=== PATIENT | female | born 1950 | race Caucasian/White ===

== ENCOUNTER 2023-05-30 07:04 | Day surgery (SDC) | payer OTHER ==
[2023-05-23 16:35] LABS: BASOPHILS # (AUTO) 0.1 K/uL (0.0-0.2); EOSINOPHILS # (AUTO) 0.2 K/uL (0.0-0.4); EOSINOPHILS % (AUTO) 3.5 % (0.0-4.0); HEMATOCRIT 36.6 % (36-48); HEMOGLOBIN 12.5 g/dL (12.0-16.0); LYMPHOCYTES # (AUTO) 1.9 K/uL (1.0-5.5); LYMPHOCYTES % (AUTO) 30.7 % (20.5-51.5); MEAN CORPUSCULAR HEMOGLOBIN 32 pg (27-31); MEAN CORPUSCULAR HGB CONC 34 % (32-36); MEAN CORPUSCULAR VOLUME 94 fL (79.0-98.0); MONOCYTES # (AUTO) 0.5 K/uL (0.0-1.0); MONOCYTES % (AUTO) 8.6 % (1.7-9.3); NEUTROPHILS # (AUTO) 3.5 K/uL (1.8-7.7); NEUTROPHILS % (AUTO) 56.2 % (40.0-70.0); PLATELET COUNT (AUTO) 243 K/uL (130-430); RED BLOOD CELL COUNT(AUTO) 3.91 MIL/uL (4.2-6.2); RED CELL DISTRIBUTION WIDTH 12.5 % (9.0-15.0); WHITE BLOOD COUNT (AUTO) 6.2 K/uL (4.8-10.8)
[2023-05-23 16:37] LABS: BILIRUBIN,URINE NEGATIVE (NEGATIVE); BLOOD, URINE NEGATIVE (NEGATIVE); CLARITY/URINE CLEAR (CLEAR); COLOR,URINE YELLOW (YELLOW); GLUCOSE,URINE NEGATIVE (NEGATIVE); KETONES,URINE NEGATIVE (NEGATIVE); LEUKOCYTE ESTERASE ,URINE NEGATIVE (NEGATIVE); NITRITE, URINE NEGATIVE (NEGATIVE); PH,URINE 5.5 (5.0-8.0); PROTEIN URINE NEGATIVE (NEGATIVE); UROBILINOGEN,URINE 0.2 (0.2-1.0)
[2023-05-23 16:39] LABS: PROTHROMBIN TIME 9.9 SECS (9.5-12.5)
[2023-05-23 17:18] LABS: ALANINE AMINOTRANSFERASE 37 U/L (12-78); ALBUMIN 3.9 g/dL (3.4-4.8); ANION GAP 8 (5-15); ASPARTATE AMINOTRANSFERASE 23 U/L (10-37); CALCIUM 9.6 mg/dL (8.4-11.0); CARBON DIOXIDE 29 mmol/L (23-29); CHLORIDE 107 mmol/L (98-107); CREATININE 0.63 mg/dL (0.55-1.30); GLUCOSE 124 mg/dL (74-106); POTASSIUM 4.6 mmol/L (3.5-5.1); SODIUM SERUM 144 mmol/L (136-145); TOTAL BILIRUBIN 0.3 mg/dL (0.0-1.0); TOTAL PROTEIN, SERUM 7.8 g/dL (6.4-8.3); UREA NITROGEN, BLOOD 14 mg/dL (8-21)
[~2023-05-30] VITALS: Ht 160 cm; Wt 58.1 kg
[~2023-05-30 07:04] MED LIST: ceFAZolin SODIUM 2 GM in D5W 100 ML IV ONE
[2023-05-30 09:36] VITALS: O2SAT 100
[2023-05-30] MEDS ORDERED: ePHEDrine sulfate 50 MG/ML VIAL ONE (10:00)
[2023-05-30] MEDS ORDERED: SUCCINYLCHOLINE CHLORIDE 20 MG/ML(QUELICIN) ONE (10:00)
[2023-05-30] MEDS ORDERED: EPINEPHRINE HCL/PF 1 MG/ML AMP ONE (10:00)
[2023-05-30] MEDS ORDERED: NS 1000 ML IV.SOLN IV ONE (10:00)
[2023-05-30] MEDS ORDERED: SEVOFLURANE 15 MIN GAS INH ONE (10:00)
[2023-05-30] MEDS ORDERED: DEXAMETHASONE SOD PHOSPHATE 4 MG/ML VIAL ONE (10:00)
[2023-05-30] MEDS ORDERED: WATER FOR IRRIGATION,STERILE 1,000 ML IRRIG.SOLN IR ONE (10:00)
[2023-05-30] MEDS ORDERED: BUPIVACAINE /PF 0.25% 30 ML VIAL INJ ONE (10:00)
[2023-05-30] MEDS ORDERED: GLYCOPYRROLATE 0.2 MG/ML VIAL ONE (10:00)
[2023-05-30] MEDS ORDERED: NS IRRIG SOLN 1000 ML IR ONE (10:00)
[2023-05-30] MEDS ORDERED: HYDROmorphone 2 MG/ML VIAL ONE (10:07)
[2023-05-30] MEDS ORDERED: ANAS1TAB51 PO (10:53)
[2023-05-30] MEDS ORDERED: [UNRECOGNIZED DRUG - OTHER] PO (10:53)
[2023-05-30] MEDS ORDERED: IRBE75TA29 PO (10:53)
[2023-05-30] MEDS ORDERED: CARV12.548 PO (10:53)
[2023-05-30] MEDS ORDERED: LIP20 PO (10:53)
[2023-05-30] MEDS ORDERED: ONDANSETRON HCL 4 MG/2 ML VIAL ONE (13:15)
[2023-05-30] MEDS ORDERED: MORPHINE 4 MG INJ. 4 MG/ML VIAL IVP PRN ×2 (13:15)
[2023-05-30] MEDS ORDERED: HYDROmorphone 1 MG/ML INJ. CARTRIDGE IVP PRN (13:15)
[2023-05-30] MEDS: ONDANSETRON HCL 4 MG/2 ML VIAL IVP PRN (13:19)
[2023-05-30] MEDS: hydrALAZINE HCL 20 MG/ML VIAL ONE (13:35)
[2023-05-30] MEDS ORDERED: METOCLOPRAMIDE HCL 10 MG/2 ML VIAL ONE (14:15)
[2023-05-30] MEDS: hydrALAZINE HCL 20 MG/ML VIAL IVP PRN (14:16)
[2023-05-30] MEDS: METOCLOPRAMIDE HCL 10 MG/2 ML VIAL IVP PRN (14:16)
[2023-05-30] MEDS ORDERED: PROCHLORPERAZINE EDISYLATE 10 MG/2 ML VIAL IVP ONE (16:00)
[2023-05-30 17:40] VITALS: BP_SYST 145; PULSE 100; RESP 20
== END 2023-05-30 17:27 | disposition home or self-care (01) ==
LOC: SDS 07:04 → SMU 07:09 → SDS 17:27
PROVIDERS: ATTEND Orthopaedic Surgery Sports Medicine
DX: M75.122 Complete rotator cuff tear or rupture of left shoulder, not specified as traumatic (principal); M75.42 Impingement syndrome of left shoulder; I10 Essential (primary) hypertension; Z85.3 Personal history of malignant neoplasm of breast; Z79.899 Other long term (current) drug therapy; Z79.01 Long term (current) use of anticoagulants; Z98.890 Other specified postprocedural states
CPT/HCPCS: 80053; 81001; 85025; 85610; 85730; 87081; 36415; 71046; 81003; 29827; 29828; 29826; 93005; J3490 ×2; J0690; J1100; J0171; J0360; J2765; J2405; J0780; J0330; J1170; J7060; J7030; C1713 ×3